=== PATIENT | male | born 1935 | race Caucasian/White ===

== ENCOUNTER → 2016-09-07 | Outpatient (CLI) | payer OTHER ==
--- NOTE | 2016-09-07 14:37 | DX ---
DEXA Bone Mineral Densitometry Clinical Indications: 80-year-old male, thyroid replacement, Fosamax, screening for osteoporosis Comparison: December 15, 2013 (low bone density) Technique: Bone Mineral Densitometry (BMD) by Dual Energy X-Ray Absorptiometry (DEXA) was performed utilizing the [employer] scanner. The lumbar spine was evaluated in the AP projection. Left forea rm was evaluated in the AP projection. Vertebral fracture assessment was also performed. AP Lumbar Spine: The L2, and L3 vertebral bodies were evaluated. L1 and L4 are excluded due to comp ression abnormalities. BMD: 1.098 gm/cm2 T-score: -1.3 SD Z-score: -1.3 SD Significantly decreased by 10.6% AP Left Forearm, 08/15: BMD: 0.884 gm/cm2 T-score: -1.1 SD Z-score: 0.1 SD No significant change. Vertebral Fracture Assessment: No significant fracture deformity. There are new T12, stable T5, T8 a nd L1 and new severe L4 compression deformity. Conclusion: Considering the lowest measured site, the patient has low bone density, however consider ing the thoracic and lumbar compression abnormalities, the patient likely has low bone strength that is out of proportion to his BMD. The physician should ensure that the patient is compliant with and i s taking bisphosphonate therapy correctly. If appropriate complaints is confirmed, then a second phar maceutical agent may be appropriate for this patient. It would also be worthwhile to exclude, and sec ondary causes of osteoporosis. Consider excluding secondary metabolic causes of bone loss (reported to be present in as many as 30% of patients with normal Z scores). Basic laboratory evaluation might include blood chemistries (calci um, phosphorus, alkaline phosphatase, liver function tests, creatinine, total protein, serum testoste alyx), complete blood count, serum 25-OH- vitamin D3 level, 24-hour urine calcium, serum TSH and s silvia PTH. Targeted laboratory testing based on individual patient circumstances might include serum e lectrophoresis (SPEP or UPEP), anti-tissue transglutaminase antibody levels (celiac disease) , serum bone specific alkaline phosphatase, bone turnover markers (urine, serum) or fibroblast growth factor 23 (FGF 23)(evaluate for unexplained osteomalacia). If the patient is unable to use an oral bisphosphonate, another agent such as IV bisphosphonates (Bon ana or Reclast), teriparatide (Forteo), a selective estrogen receptor modulator (Evista) or denosuma b ( anti RANKL monoclonal antibody) might be considered. If antiresorptive therapy is initiated and if clinically indicated, consider obtaining a baseline and 3 month followup bone resorption marker (NTX, CTX, TRAP5b or Pyridinoline, deoxypyridinoline) to mon itor the therapeutic effect. Supplementing an insufficient diet to achieve total intakes of 1500 mg calcium and 800 International Units of vitamin D daily should be considered. Osteoporosis prevention and treatment begins by modify ing risk factors. The patient should be encouraged to participate in a regular exercise program that includes weightbearing and muscle strengthening regimens, as is clinically appropriate. Recommend follow-up DEXA in one year to assess the efficacy of pharmacologic intervention and/or paulette ection of appropriate secondary cause.
== END ==
LOC: BRMIMAGING 13:28
PROVIDERS: ATTEND Internal Medicine
DX: Z13.820 Encounter for screening for osteoporosis (principal); M85.80 Other specified disorders of bone density and structure, unspecified site; Z79.899 Other long term (current) drug therapy